=== PATIENT | female | born 1940 | race Caucasian/White ===

== ENCOUNTER 2017-08-26 04:01 | Emergency (ER) | payer MEDICARE, BC ==
[2017-08-26] MEDS ORDERED: Nitroglycerin 0.4 MG Tab.SL SL ONE (04:11)
--- NOTE | 2017-08-26 08:17 | EDM.PDOC ---
ED HPI GENERAL MEDICAL PROBLEM - General Chief Complaint: Chest Pain Stated Complaint: TIGHTNESS IN CHEST Time Seen by Provider: 08/26/17 07:25 Source of Information: Reports: Patient, Other (ED provider) History Limitations: Reports: No Limitations - History of Present Illness INITIAL COMMENTS - FREE TEXT/NARRATIVE: Case reviewed from ED provider this am. awoke with deep retrosternal chest pain at 3 am, characterized as a 10/10. There was minor sweats, but no palpitations, pedro SOB, pleurisy, heart burn, gas or belching. She did not feel dizzy or lt headiness, reported no back pain. She was brought to the ED by spouse, initial medical workup has not confirmed or ruled out acute coronary syndrome. Her pain is currerntly 2-3. Her VSS. A follow up ekg and Troponin I are pending. - Related Data Allergies Allergy/AdvReac Type Severity Reaction Status Date / Time cefuroxime [From Ceftin] Allergy Hives Verified 08/26/17 04:34 meperidine [From Demerol] Allergy Hives Verified 08/26/17 04:34 morphine Allergy Hives Verified 08/26/17 04:34 Home Meds: Home Meds Aspirin 81 g PO DAILY 08/26/17 [History] FLUoxetine HCl [Prozac] 20 mg PO DAILY 08/26/17 [History] Fesoterodine Fumarate [Toviaz] 8 mg PO DAILY 08/26/17 [History] Losartan/Hydrochlorothiazide [Losartan-HCTZ 100-25 MG] 1 tab PO DAILY 08/26/17 [ History] Simvastatin [Zocor] 20 mg PO DAILY 08/26/17 [History] amLODIPine Besylate [Amlodipine Besylate] 5 mg PO DAILY 08/26/17 [History] Past Medical History HEENT History: Reports: Hard of Hearing, Impaired Vision Cardiovascular History: Reports: High Cholesterol, Hypertension, Other (See Below) Other Cardiovascular History: enlarged aorta [employer]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 Musculoskeletal History: wrist fracture - Past Surgical History GI Surgical History: Reports: Appendectomy Female Surgical History: Reports: Hysterectomy Social & Family History - Family History Family Medical History: Unobtainable - Tobacco Use Smoking Status *Q: Never Smoker - Caffeine Use Caffeine Use: Reports: Coffee, Soda - Recreational Drug Use Recreational Drug Use: No ED ROS GENERAL - Review of Systems Review Of Systems: See Below Constitutional: Reports: Malaise, Decreased Appetite HEENT: Reports: No Symptoms Respiratory: Reports: No Symptoms Cardiovascular: Reports: Chest Pain Endocrine: Reports: No Symptoms GI/Abdominal: Reports: Decreased Appetite : Reports: No Symptoms Musculoskeletal: Reports: No Symptoms Skin: Reports: No Symptoms Neurological: Reports: No Symptoms Psychiatric: Reports: No Symptoms Hematologic/Lymphatic: Reports: No Symptoms Immunologic: Reports: No Symptoms ED EXAM, GENERAL - Physical Exam Exam: See Below Exam Limited By: No Limitations General Appearance: Alert, WD/WN, No Apparent Distress, Anxious Eye Exam: Bilateral Eye: EOMI, Normal Inspection, PERRL Ears: Normal External Exam Nose: Normal Inspection Throat/Mouth: Normal Inspection, Normal Oropharynx Head: Normocephalic Neck: Normal Inspection, Supple, Non-Tender Respiratory/Chest: No Respiratory Distress, Lungs Clear, Normal Breath Sounds, No Accessory Muscle Use, Chest Non-Tender Cardiovascular: Regular Rate, Rhythm, No Murmur GI/Abdominal: Normal Bowel Sounds, Soft, Non-Tender, No Organomegaly, No Distention, No Abnormal Bruit, No Mass (Female) Exam: Deferred Rectal (Female) Exam: Deferred Back Exam: Normal Inspection Extremities: Normal Inspection Neurological: Alert, Oriented, CN II-XII Intact, Normal Cognition, No Motor/ Sensory Deficits Psychiatric: Normal Affect, Normal Mood Skin Exam: Warm, Dry, Intact Lymphatic: No Adenopathy Course - Vital Signs Text/Narrative:: Subsequent ekg and Troponin I were baseline and unchanged. I proceded with a Chest Angio, results were satisfactory. An incidental finding of coronary artery calcifications was noted. Patient is discharged clinically stable, and advised follow up with PCP to consider further cardiology assessment. Last Recorded V/S: Last Vital Signs Temp 36.7 C 08/26/17 04:02 Pulse 76 08/26/17 04:02 Resp 15 08/26/17 04:02 BP 120/64 08/26/17 04:18 Pulse Ox 95 08/26/17 04:02 - Orders/Labs/Meds Orders: Active Orders 24 hr Category Date Time Status Ang Chest [CT] Stat Exams 08/26/17 09:56 Taken Chest 1V Frontal [CR] Stat Exams 08/26/17 04:10 Taken EKG 12 Lead [EK] Routine Ther 08/26/17 04:09 Ordered EKG 12 Lead [EK] Routine Ther 08/26/17 09:00 Ordered Labs: Laboratory Tests 08/26/17 08/26/17 08/26/17 Range/Units 04:26 04:26 04:26 WBC 6.3 (4.5-12.0) X10-3/uL RBC 4.27 (3.23-5.20) x10(6)uL Hgb 13.2 (11.5-15.5) g/dL Hct 39.1 (30.0-51.3) % MCV 91.6 (80-96) fL MCH 31.0 (27.7-33.6) pg MCHC 33.9 (32.2-35.4) g/dL RDW 12.3 (11.5-15.5) % Plt Count 263 (125-369) X10(3)uL MPV 7.1 L (7.4-10.4) fL Neut % (Auto) 65.2 (46-82) % Lymph % (Auto) 24.9 (13-37) % [place] % (Auto) 6.9 (4-12) % Eos % (Auto) 3 (1.0-5.0) % Baso % (Auto) 1 (0-2) % Neut # (Auto) 4.1 (1.6-8.3) # Lymph # (Auto) 1.6 (0.6-5.0) # [place] # (Auto) 0.4 (0.0-1.3) # Eos # (Auto) 0.2 (0.0-0.8) # Baso # (Auto) 0.0 (0.0-0.2) # D-Dimer, Quantitative (0.0-0.59) mg/LFEU Sodium 139 (135-145) mmol/L Potassium 3.2 L (3.5-5.3) mmol/L Chloride 100 (100-110) mmol/L Carbon Dioxide 28 (21-32) mmol/L BUN 9 (7-18) mg/dL Creatinine 0.6 (0.55-1.02) mg/dL Est Cr Clr Drug Dosing TNP Estimated GFR (MDRD) > 60 (>60) BUN/Creatinine Ratio 15.0 (9-20) Glucose 126 H (80-116) mg/dL Calcium 9.4 (8.6-10.2) mg/dL Total Bilirubin 0.3 (0.1-1.3) mg/dL AST 24 (5-25) IU/L ALT 30 (12-36) U/L Alkaline Phosphatase 67 (56-112) IU/L Troponin I < 0.017 L (<0.017-0.056) ng/mL C-Reactive Protein (0.5-0.9) mg/dL NT-Pro-B Natriuret Pep (<=450) pg/mL Total Protein 7.2 (6.0-8.0) g/dL Albumin 3.7 (3.2-4.6) g/dL Globulin 3.5 g/dL Albumin/Globulin Ratio 1.1 08/26/17 08/26/17 08/26/17 Range/Units 04:26 04:26 08:55 WBC (4.5-12.0) X10-3/uL RBC (3.23-5.20) x10(6)uL Hgb (11.5-15.5) g/dL Hct (30.0-51.3) % MCV (80-96) fL MCH (27.7-33.6) pg MCHC (32.2-35.4) g/dL RDW (11.5-15.5) % Plt Count (125-369) X10(3)uL MPV (7.4-10.4) fL Neut % (Auto) (46-82) % Lymph % (Auto) (13-37) % [place] % (Auto) (4-12) % Eos % (Auto) (1.0-5.0) % Baso % (Auto) (0-2) % Neut # (Auto) (1.6-8.3) # Lymph # (Auto) (0.6-5.0) # [place] # (Auto) (0.0-1.3) # Eos # (Auto) (0.0-0.8) # Baso # (Auto) (0.0-0.2) # D-Dimer, Quantitative (0.0-0.59) mg/LFEU Sodium (135-145) mmol/L Potassium (3.5-5.3) mmol/L Chloride (100-110) mmol/L Carbon Dioxide (21-32) mmol/L BUN (7-18) mg/dL Creatinine (0.55-1.02) mg/dL Est Cr Clr Drug Dosing Estimated GFR (MDRD) (>60) BUN/Creatinine Ratio (9-20) Glucose (80-116) mg/dL Calcium (8.6-10.2) mg/dL Total Bilirubin (0.1-1.3) mg/dL AST (5-25) IU/L ALT (12-36) U/L Alkaline Phosphatase (56-112) IU/L Troponin I < 0.017 L (<0.017-0.056) ng/mL C-Reactive Protein < 0.2 L (0.5-0.9) mg/dL NT-Pro-B Natriuret Pep 75 (<=450) pg/mL Total Protein (6.0-8.0) g/dL Albumin (3.2-4.6) g/dL Globulin g/dL Albumin/Globulin Ratio 08/26/ Range/Units 08:55 WBC (4.5-12.0) X10-3/uL RBC (3.23-5.20) x10(6)uL Hgb (11.5-15.5) g/dL Hct (30.0-51.3) % MCV (80-96) fL MCH (27.7-33.6) pg MCHC (32.2-35.4) g/dL RDW (11.5-15.5) % Plt Count (125-369) X10(3)uL MPV (7.4-10.4) fL Neut % (Auto) (46-82) % Lymph % (Auto) (13-37) % [place] % (Auto) (4-12) % Eos % (Auto) (1.0-5.0) % Baso % (Auto) (0-2) % Neut # (Auto) (1.6-8.3) # Lymph # (Auto) (0.6-5.0) # [place] # (Auto) (0.0-1.3) # Eos # (Auto) (0.0-0.8) # Baso # (Auto) (0.0-0.2) # D-Dimer, Quantitative 0.52 (0.0-0.59) mg/LFEU Sodium (135-145) mmol/L Potassium (3.5-5.3) mmol/L Chloride (100-110) mmol/L Carbon Dioxide (21-32) mmol/L BUN (7-18) mg/dL Creatinine (0.55-1.02) mg/dL Est Cr Clr Drug Dosing Estimated GFR (MDRD) (>60) BUN/Creatinine Ratio (9-20) Glucose (80-116) mg/dL Calcium (8.6-10.2) mg/dL Total Bilirubin (0.1-1.3) mg/dL AST (5-25) IU/L ALT (12-36) U/L Alkaline Phosphatase (56-112) IU/L Troponin I (<0.017-0.056) ng/mL C-Reactive Protein (0.5-0.9) mg/dL NT-Pro-B Natriuret Pep (<=450) pg/mL Total Protein (6.0-8.0) g/dL Albumin (3.2-4.6) g/dL Globulin g/dL Albumin/Globulin Ratio Meds: Medications Discontinued Medications Generic Name Dose Route Start Last Admin Trade Name Freq PRN Reason Stop Dose Admin Iopamidol 75 ml 08/26/17 10:06 08/26/17 10:31 Isovue-370 (76%) IV 08/26/17 10:07 66 ml ASDIRECTED ONE Administration Nitroglycerin 0.4 mg 08/26/17 04:11 08/26/17 04:18 Nitrostat SL 08/26/17 04:12 0.4 mg ONETIME ONE Administration Tramadol HCl Confirm 08/26/17 10:19 Ultram Administered 08/26/17 10:20 Dose 50 mg .ROUTE .STK-MED ONE Departure - Departure Time of Disposition: 11:15 Disposition: Home, Self-Care 01 Condition: Good Clinical Impression: Atypical chest pain Referrals: Pita Sanchez CLAIM TRAINEE [Primary Care Provider] - Forms: ED Department Discharge - Problem List & Annotations (1) Atypical chest pain SNOMED Code(s): 919209334 Code(s): R07.89 - OTHER CHEST PAIN Status: Acute Current Visit: Yes Annotation/Comment:: Home, activity as tolerated, no driving, continue ASA 81 mg qd, and follow up with PCP. - Problem List Review Problem List Initiated/Reviewed/Updated: Yes - My Orders Last 24 Hours: My Active Orders 08/26/17 09:56 Ang Chest [CT] Stat - Assessment/Plan Last 24 Hours: My Active Orders 08/26/17 09:56 Ang Chest [CT] Stat Plan: Follow up with PCP.
[2017-08-26] MEDS ORDERED: Iopamidol 755 Mg/ML 75 ML Bottle IV ONE (10:06)
[2017-08-26] MEDS ORDERED: traMADol 50 MG Tab ONE (10:19)
--- NOTE | 2017-08-26 12:45 | ER ---
DATE SEEN: 08/26/2017 CHIEF COMPLAINT: Chest tightness. HISTORY OF PRESENT ILLNESS: A 77-year-old female complaining about an hour of heaviness in the center of the chest, [id number] with no difficulty breathing. No radiation. Has had some cough associated with this, started a few hours ago as well. She was sleeping when this started. REVIEW OF SYSTEMS: She denies any nausea, diaphoresis, vomiting, neither does she have any fever or headache or weakness of one side. PAST MEDICAL HISTORY: Hypertension, hyperlipidemia. ALLERGIES: Please review the medication list and allergies at the nurse's notes and the electronic record. PHYSICAL EXAMINATION: VITAL SIGNS: Blood pressure is 138/69, pulse is 78, oxygenation is 95% on room air. ENT: Negative. NECK: Supple. CHEST: CLEAR. CARDIOVASCULAR: Normal. ABDOMEN: Soft. MENTAL STATUS: Alert. LABORATORY DATA: The initial labs including troponin are negative. EKG is normal sinus rhythm. I do not see any ST depression or elevation, significant. Chest x-ray initially was looking nonacute. BNP is normal. IMPRESSION: Chest pressure. PLAN: To keep the patient for few hours, repeat the troponin and EKG at [address] Potts will take over her care at that time. I saw her at exactly 0511 hours. /[id number] REGINA/ESTEBAN
--- NOTE | 2017-08-26 13:06 | CR ---
INDICATION: Chest pain. CHEST: Portable AP upright view of the chest revealed the heart to be normal in size and shape, as visualized, with relatively poor inspiration. There is some linear density at the left costophrenic angle, which could represent linear atelectasis, fibrosis, or possibly minimal pneumonia with pleuritis in that area. The aorta is calcified in the arch area and somewhat tortuous. Overlying EKG leads are noted. A definite active infiltrate or effusion was not identified. IMPRESSION: 1. No definite acute process but difficult to exclude minimal patchy pneumonia at the lingula - costophrenic angle area. This may simply be fibrotic, however. 2. ASD aorta. MTDD
--- NOTE | 2017-08-26 13:18 | CT ---
INDICATION: Retrosternal chest pain, history of aortic enlargement, D-dimer normal, C-reactive protein normal, EKG and troponin normal. CT ANGIOGRAPHY OF THE CHEST FOR PULMONARY ARTERIES: Spiral 1.25 mm axial sections were obtained through the chest with sagittal and coronal reconstructions, utilizing 66 mL Isovue 370 at 3.5 mL/second, to visualize the pulmonary arteries. Study was obtained 08/26/2017 - no comparison CTs are available. Total exam DLP = 579.82 mGy-cm. No evidence of pulmonary embolus or an active infiltrate or effusion could be identified. There are some heavy markings at the lingula, which most likely are fibrotic in nature but do make it difficult to entirely exclude a minimal area of pneumonia and/or atelectasis. Very minimal fibrotic appearing changes are noted in the lower lobes bilaterally , more prominent on the left than right. The heart was not enlarged; however, there is coronary artery calcification noted. The aorta is somewhat calcified also. There is calcification at the origin of the superior mesenteric artery and in the splenic artery. Mediastinal lymphadenopathy is minimal and nonspecific. No mediastinal masses were identified. No significant pericardial effusion was identified. There is slight prominence of the pericardium anteriorly, raising question of a focal area of pericarditis. This should be correlated clinically. IMPRESSION: 1. Anteriorly located area of thickening of the pericardium (anterior thickness 13 mm, the length involved of the pericardium approximately 28 mm) - density compatible with fluid. 2. No evidence of pulmonary embolus. 3. Fibrosis and/or atelectasis, is most likely at the lingula. Very minimal area of pneumonia is difficult to entirely exclude in that area, however. 4. ASHD with coronary artery calcifications. Report was called to Dr. Delroy knight a.m., 08/26/2017. [facility]
== END 2017-08-26 11:37 | disposition home or self-care (01) ==
LOC: FB.ED 04:01
DX: R07.89 Other chest pain (principal); I10 Essential (primary) hypertension; E78.00 Pure hypercholesterolemia, unspecified
CPT/HCPCS: 36415; 71045; 71275; 80053; 83880; 84484; 85025; 85379; 86140; 93005; 99285; A9270; Q9967

== ENCOUNTER 2019-04-07 16:31 | Observation (INO) | payer MEDICARE, BC ==
--- NOTE | 2019-04-07 17:01 | EDM.PDOC ---
ED HPI GENERAL MEDICAL PROBLEM - General Stated Complaint: SYNCOPE, Time Seen by Provider: 04/07/19 16:55 Source of Information: Reports: Patient History Limitations: Reports: No Limitations - History of Present Illness INITIAL COMMENTS - FREE TEXT/NARRATIVE: 78-year-old female who reports that at about 8:30 PM last night she was sitting and watching TV with her and she apparently passed out. The reported that into slumped over while sitting and about 10 seconds and then came around and seemed to be really pretty normally. She had some mild dizziness and some mild nausea following this but they resolved very quickly and she felt normal after this. She went to bed last night and slept well according to her and her . She felt well all through the day today and then at approximately 4:30 to 5 PM today after she had did some mopping of her floor she had another syncopal episode and the reports that she called out his name and then seemed to slump to the floor. She did not hit her head. She was again out for about 10 seconds and when she came to, she seemed to respond normally and she felt some mild dizziness and some mild nausea. She also had an occipital headache but intermittent occipital headaches prior to today. She's had no other symptoms. She's had no nasal congestion. She's had no sore throat. She's had no cough. She's had no dysuria or hematuria. She's had no abdominal pain. She had no abdominal superseding to her a couple episodes. In fact, she does not remember calling her 's name out when she had the syncopal episode today. Her reports that there was no shaking of her arms or legs. The patient has had no chest pain or palpitations. No shortness of breath. No vomiting. She has been eating and drinking normally. She rates the pain in her head now as a 3/10 and it was a 7/10 at its worst. It does not radiate. It is a sharp pain. Nothing really seems to make the pain better or worse. No other associated signs or symptoms. There are no other modifying factors. Onset: Other (Last night and again today) Duration: Intermittent Location: Reports: Head (Occipital headache) Quality: Reports: Sharp Severity: Mild (Was a 7/10 at its worse and is now a 3/10 and resolving.) Improves with: Reports: None Worsens with: Reports: None Context: Reports: Other (As above) Associated Symptoms: Reports: Headaches, Nausea/Vomiting (Mild nausea initially which has resolved), Syncope Treatments JOB TRACER: Reports: Other (see below) (Nothing) - Related Data Allergies Allergy/AdvReac Type Severity Reaction Status Date / Time cefuroxime [From Ceftin] Allergy Hives Verified 08/26/17 04:34 meperidine [From Demerol] Allergy Hives Verified 08/26/17 04:34 morphine Allergy Hives Verified 08/26/17 04:34 Home Meds: Home Meds Aspirin 81 g PO DAILY 08/26/17 [History] FLUoxetine HCl [Prozac] 20 mg PO DAILY 08/26/17 [History] Fesoterodine Fumarate [Toviaz] 8 mg PO DAILY 08/26/17 [History] Losartan/Hydrochlorothiazide [Losartan-HCTZ 100-25 MG] 1 tab PO DAILY 08/26/17 [ History] Simvastatin [Zocor] 20 mg PO DAILY 08/26/17 [History] amLODIPine Besylate [Amlodipine Besylate] 5 mg PO DAILY 08/26/17 [History] Past Medical History HEENT History: Reports: Hard of Hearing, Impaired Vision Cardiovascular History: Reports: High Cholesterol, Hypertension, Other (See Below) Other Cardiovascular History: 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 Other Musculoskeletal History: wrist fracture - Past Surgical History Cardiovascular Surgical History: Reports: Other (See Below) (Cardiac catheterization at 20 years of age, diagnostic) GI Surgical History: Reports: Appendectomy Female Surgical History: Reports: Hysterectomy Social & Family History - Tobacco Use Smoking Status *Q: Never Smoker - Caffeine Use Caffeine Use: Reports: Coffee, Soda - Alcohol Use Alcohol Use History: Yes Alcohol Use Frequency: Weekly (3 times a week) - Living Situation & Occupation Living situation: Reports: Occupation: Retired Social History Comment: She is here with her . ED ROS GENERAL - Review of Systems Review Of Systems: See Below Constitutional: Reports: No Symptoms HEENT: Reports: No Symptoms Respiratory: Reports: No Symptoms Cardiovascular: Reports: Syncope Endocrine: Reports: No Symptoms GI/Abdominal: Reports: Nausea (Mild nausea earlier which has resolved.) : Reports: No Symptoms Musculoskeletal: Reports: No Symptoms Skin: Reports: No Symptoms Neurological: Reports: Dizziness (Mild dizziness earlier which has resolved), Headache, Syncope Hematologic/Lymphatic: Reports: No Symptoms Immunologic: Reports: No Symptoms - Physical Exam Exam: See Below Exam Limited By: No Limitations General Appearance: Alert, WD/WN, No Apparent Distress Eye Exam: Bilateral Eye: EOMI, Normal Inspection, PERRL Ears: Normal External Exam, Hearing Grossly Normal Nose: Normal Inspection, Normal Mucosa, No Blood Throat/Mouth: Normal Inspection, Normal Lips, Normal Oropharynx, Normal Voice, No Airway Compromise Head Exam: Atraumatic, Normocephalic Neck: Normal Inspection, Supple, Non-Tender, Full Range of Motion Respiratory/Chest: No Respiratory Distress, Lungs Clear, Normal Breath Sounds, No Accessory Muscle Use, Chest Non-Tender Cardiovascular: Normal Peripheral Pulses, Regular Rate, Rhythm, No Edema, No JVD , No Murmur GI/Abdominal: Normal Bowel Sounds, Soft, Non-Tender, No Organomegaly, No Mass Neuro Exam (Abbreviated): Alert, Oriented, CN II-XII Intact, Normal Cognition, No Motor/Sensory Deficits Back Exam: Normal Inspection Extremities: Normal Inspection, Normal Range of Motion, Non-Tender, No Pedal Edema, Normal Capillary Refill, Other (Radial and dorsalis pedis pulses are present, full and symmetric bilaterally.) Psychiatric: Normal Affect Skin Exam: Warm, Dry, Intact, Normal Color, No Rash EKG INTERPRETATION EKG Date: 04/07/19 Time: 16:46 Rhythm: NSR Rate (Beats/Min): 71 [place]: Normal P-Wave: Present QRS: RBBB ST-T: Other (Flat T waves inferiorly and laterally) QT: Prolonged Comparison: Other: (Compared to EKG performed on 08/26/2017, the T waves laterally in V5 and V6 are flat but this lead placement.) Course - Vital Signs Last Recorded V/S: Last Vital Signs Temp 36.8 C 04/07/19 16:31 Pulse 78 04/07/19 16:31 Resp 18 04/07/19 16:31 BP 122/92 H 04/07/19 16:31 Pulse Ox 97 04/07/19 16:31 - Orders/Labs/Meds Orders: Active Orders 24 hr Category Date Time Status EKG Documentation Completion [RC] ASDIRECTED Care 04/07/19 17:23 Active Orthostatic Vital Signs [RC] ASDIRECTED Care 04/07/19 17:21 Active Head wo Cont [CT] Stat Exams 04/07/19 17:21 Taken CULTURE URINE [RM] Stat Lab 04/07/19 18:25 Sodium Chloride 0.9% [Saline Flush] Med 04/07/19 17:21 Active 10 ml FLUSH ASDIRECTED PRN Peripheral IV Insertion Adult [OM.PC] Routine Oth 04/07/19 17:21 Ordered EKG 12 Lead [EK] Routine Ther 04/07/19 17:21 Ordered Medication Orders Acetaminophen (Tylenol) 650 mg PO Q4H PRN PRN Reason: Pain (Mild 1-3)/fever Sodium Chloride (Normal Saline) 1,000 mls @ 100 mls/hr IV ASDIRECTED SOTO Ondansetron HCl (Zofran Odt) 4 mg PO Q6H PRN PRN Reason: nausea, able to take PO Sodium Chloride (Saline Flush) 10 ml FLUSH ASDIRECTED PRN PRN Reason: Keep Vein Open Labs: Laboratory Tests 04/07/19 04/07/19 04/07/19 Range/Units 17:21 17:21 17:21 WBC 6.6 (4.5-12.0) X10-3/uL RBC 4.34 (3.23-5.20) x10(6)uL Hgb 13.2 (11.5-15.5) g/dL Hct 39.8 (30.0-51.3) % MCV 91.9 (80-96) fL MCH 30.3 (27.7-33.6) pg MCHC 33.0 (32.2-35.4) g/dL RDW 12.8 (11.5-15.5) % Plt Count 316 (125-369) X10(3)uL MPV 6.9 L (7.4-10.4) fL Neut % (Auto) 58.6 (46-82) % Lymph % (Auto) 29.7 (13-37) % Bond % (Auto) 8.1 (4-12) % Eos % (Auto) 3 (1.0-5.0) % Baso % (Auto) 1 (0-2) % Neut # (Auto) 3.8 (1.6-8.3) # Lymph # (Auto) 2.0 (0.6-5.0) # Bond # (Auto) 0.5 (0.0-1.3) # Eos # (Auto) 0.2 (0.0-0.8) # Baso # (Auto) 0.1 (0.0-0.2) # Sodium 138 (135-145) mmol/L Potassium 3.3 L (3.5-5.3) mmol/L Chloride 100 (100-110) mmol/L Carbon Dioxide 26 (21-32) mmol/L BUN 12 (7-18) mg/dL Creatinine 0.6 (0.55-1.02) mg/dL Est Cr Clr Drug Dosing TNP Estimated GFR (MDRD) > 60 (>60) BUN/Creatinine Ratio 20.0 (9-20) Glucose 119 H (80-116) mg/dL Calcium 8.8 (8.6-10.2) mg/dL Magnesium 1.9 (1.8-2.5) mg/dL Total Bilirubin 0.4 (0.1-1.3) mg/dL AST 24 (5-25) IU/L ALT 30 (12-36) U/L Alkaline Phosphatase 57 (56-112) IU/L C-Reactive Protein (0.5-0.9) mg/dL Total Protein 7.4 (6.0-8.0) g/dL Albumin 4.1 (3.2-4.6) g/dL Globulin 3.3 g/dL Albumin/Globulin Ratio 1.2 TSH, Ultra Sensitive (0.36-3.74) IU/mL Urine Color Yellow (YELLOW) Urine Appearance Clear (CLEAR) Urine pH 7.0 H (5.0-6.5) Ur Specific [place] 1.005 L (1.010-1.025) Urine Protein Negative (NEGATIVE) mg/dL Urine Glucose (UA) Normal (NORMAL) mg/dL Urine Ketones Negative (NEGATIVE) mg/dL Urine Occult Blood Negative (NEGATIVE) Urine Nitrite Negative (NEGATIVE) Urine Bilirubin Negative (NEGATIVE) Urine Urobilinogen Normal (NEGATIVE) mg/dL Ur Leukocyte Esterase Moderate H (NEGATIVE) Urine RBC Not seen (0-5) Urine WBC 0-5 (0-5) Urine Bacteria Rare H (NS) 04/07/19 Range/Units 17:21 WBC (4.5-12.0) X10-3/uL RBC (3.23-5.20) x10(6)uL Hgb (11.5-15.5) g/dL Hct (30.0-51.3) % MCV (80-96) fL MCH (27.7-33.6) pg MCHC (32.2-35.4) g/dL RDW (11.5-15.5) % Plt Count (125-369) X10(3)uL MPV (7.4-10.4) fL Neut % (Auto) (46-82) % Lymph % (Auto) (13-37) % Bond % (Auto) (4-12) % Eos % (Auto) (1.0-5.0) % Baso % (Auto) (0-2) % Neut # (Auto) (1.6-8.3) # Lymph # (Auto) (0.6-5.0) # Bond # (Auto) (0.0-1.3) # Eos # (Auto) (0.0-0.8) # Baso # (Auto) (0.0-0.2) # Sodium (135-145) mmol/L Potassium (3.5-5.3) mmol/L Chloride (100-110) mmol/L Carbon Dioxide (21-32) mmol/L BUN (7-18) mg/dL Creatinine (0.55-1.02) mg/dL Est Cr Clr Drug Dosing Estimated GFR (MDRD) (>60) BUN/Creatinine Ratio (9-20) Glucose (80-116) mg/dL Calcium (8.6-10.2) mg/dL Magnesium (1.8-2.5) mg/dL Total Bilirubin (0.1-1.3) mg/dL AST (5-25) IU/L ALT (12-36) U/L Alkaline Phosphatase (56-112) IU/L C-Reactive Protein < 0.2 L (0.5-0.9) mg/dL Total Protein (6.0-8.0) g/dL Albumin (3.2-4.6) g/dL Globulin g/dL Albumin/Globulin Ratio TSH, Ultra Sensitive 2.07 (0.36-3.74) IU/mL Urine Color (YELLOW) Urine Appearance (CLEAR) Urine pH (5.0-6.5) Ur Specific [place] (1.010-1.025) Urine Protein (NEGATIVE) mg/dL Urine Glucose (UA) (NORMAL) mg/dL Urine Ketones (NEGATIVE) mg/dL Urine Occult Blood (NEGATIVE) Urine Nitrite (NEGATIVE) Urine Bilirubin (NEGATIVE) Urine Urobilinogen (NEGATIVE) mg/dL Ur Leukocyte Esterase (NEGATIVE) Urine RBC (0-5) Urine WBC (0-5) Urine Bacteria (NS) Meds: Medications Generic Name Dose Route Start Last Admin Trade Name Freq PRN Reason Stop Dose Admin Acetaminophen 650 mg 04/07/19 18:41 Tylenol PO Q4H PRN Pain (Mild 1-3)/fever Sodium Chloride 1,000 mls @ 100 mls/hr 04/07/19 18:45 Normal Saline IV ASDIRECTED SOTO Ondansetron HCl 4 mg 04/07/19 18:41 Zofran Odt PO Q6H PRN nausea, able to take PO Sodium Chloride 10 ml 04/07/19 17:21 Saline Flush FLUSH ASDIRECTED PRN Keep Vein Open Discontinued Medications Generic Name Dose Route Start Last Admin Trade Name Freq PRN Reason Stop Dose Admin Potassium Chloride 20 meq 04/07/19 18:23 Potassium Chloride Solution PO 04/07/19 18:24 ONETIME ONE - Radiology Interpretation Free Text/Narrative:: CT scan of head showed no acute abnormality per the radiologist. - Re-Assessments/Exams Free Text/Narrative Re-Assessment/Exam: 04/07/19 18:30: Patient feels somewhat tired but otherwise her symptoms. Her headache is essentially resolved. She is having no palpitations, no chest pain, no shortness of breath or any other concerning symptoms. Patient with reassuring lab tests except for a mildly low potassium. She has no urinary symptoms but I did send her urine for culture because of the white cells and bacteria present. The nature of her syncope is not easily explainable as vasovagal and she does have some mild EKG changes from previous on 08/26/2017. Therefore, I think she would be best served with admission for continued cardiac monitoring overnight and continued close observation. I do not expect that she will require more than a 2 midnight hospital stay at this point. I discussed this with the patient and her and they are in agreement with this plan. I will place admission orders and Dr. Vanegas will assume care of the patient at 7 AM on 04/08/2019. Departure - Departure Time of Disposition: 18:40 Disposition: Refer to Observation Condition: Fair (Stable) Clinical Impression: Hypokalemia Syncope Qualifiers: Syncope type: unspecified Qualified Code(s): R55 - Syncope and collapse - Discharge Information Sepsis Event Note - Focused Exam Vital Signs: Vital Signs Temp Pulse Resp BP Pulse Ox 04/07/19 16:31 36.8 C 78 18 122/92 H 97 Date Exam was Performed: 04/07/19 Time Exam was Performed: 18:49 - My Orders Last 24 Hours: My Active Orders 04/07/19 17:21 Orthostatic Vital Signs [RC] ASDIRECTED Head wo Cont [CT] Stat Sodium Chloride 0.9% [Saline Flush] 10 ml FLUSH ASDIRECTED PRN Peripheral IV Insertion Adult [OM.PC] Routine EKG 12 Lead [EK] Routine 04/07/19 17:23 EKG Documentation Completion [RC] ASDIRECTED 04/07/19 18:25 CULTURE URINE [RM] Stat - Assessment/Plan Last 24 Hours: My Active Orders 04/07/19 17:21 Orthostatic Vital Signs [RC] ASDIRECTED Head wo Cont [CT] Stat Sodium Chloride 0.9% [Saline Flush] 10 ml FLUSH ASDIRECTED PRN Peripheral IV Insertion Adult [OM.PC] Routine EKG 12 Lead [EK] Routine 04/07/19 17:23 EKG Documentation Completion [RC] ASDIRECTED 04/07/19 18:25 CULTURE URINE [RM] Stat
[2019-04-07] MEDS ORDERED: Sodium Chloride 0.9% 10 ML Syringe FLUSH PRN (17:21)
[2019-04-07] MEDS ORDERED: Potassium Chloride 10% 20 MEQ/15 ML Soln 15 ML UD Cup PO ONE (18:23)
[2019-04-07] MEDS ORDERED: Ondansetron 4 MG Tab.DIS PO PRN (18:41)
[2019-04-07] MEDS ORDERED: Acetaminophen 325 MG Tab PO PRN (18:41)
[2019-04-07] MEDS ORDERED: Sodium Chloride 0.9% 1,000 ML IV SCH (18:45)
[2019-04-08] MEDS ORDERED: OXYBUTYNIN CHLORIDE 10 MG PO SCH (09:00)
[2019-04-08] MEDS ORDERED: FLUoxetine 20 MG Cap PO SCH (09:00)
[2019-04-08] MEDS ORDERED: Potassium Chloride 20 MEQ Tab.ER PO SCH (09:00)
--- NOTE | 2019-04-08 11:56 | HP ---
ADMISSION DATE: 04/07/2019 CHIEF COMPLAINT: Syncopal episodes. HISTORY OF PRESENT ILLNESS: Mrs. Hampton is a healthy 78-year-old woman with a history of hypertension and osteoporosis. She was brought in the ER by her last evening because of 2 episodes where she passed out. The previous night, they were sitting in the living room watching television, and she passed out in her chair for a period of a minute her less. She came to spontaneously and seemed to get back to normal. Then yesterday, the day of admission, she was up walking in the kitchen when she suddenly passed out and fell to the floor. She did not sustain an injury, but came to again spontaneously. She then came into the emergency room. She was evaluated by Dr. Nunn and admitted to observation with telemetry. The patient states she did feel one episode where she got lightheaded during the night while she was in bed, but did not completely pass out. She was on telemetry monitoring, which revealed an episode of long, greater than 10-second sinus pauses with 2 junctional escape beats at approximately 1:30 in the a.m. Mrs. Hamtpon has not been on a beta virgen. HOME MEDICATIONS: Include: 1. Losartan. 2. Oxybutynin. 3. Simvastatin. 4. Hydrochlorothiazide. 5. Amlodipine 5 mg daily. PAST MEDICAL HISTORY: She has been very healthy. She has had hypertension for many years. She had a cardiac catheterization at the [facility] at age 20 and was told she had an enlarged aorta, but it would never bother her. She is status post appendectomy, vaginal hysterectomy with BSO, T and A, bilateral cataract surgeries. She has osteoporosis, hypertension, and she has sustained a right wrist fracture. ALLERGIES: Cefuroxime, Demerol, and morphine. She does not recall the reactions that she had. SOCIAL HISTORY: Nonsmoker, occasional alcohol, decaf coffee, occasional iced tea. The patient has been for 58 years. They had 2 children, 1 daughter of cirrhosis. Son lives in [place]. Six grandchildren and 1 great grandchild. 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 Her is retired from [employer] after teaching [employer] for 33 years. They have been now retired for 20 years. FAMILY HISTORY: The patient's father at age 57 of heart disease. He had had an OR at age 46. One brother also had OR before age 50. Mother at age 76 of lung disease. REVIEW OF SYSTEMS: GENERAL: No seizures or recent significant weight changes. SKIN: No rash. HEENT: No recent change in hearing or vision. No sore throat or URI. No cough or purulent sputum. No chest pain. GI: No abdominal pain, nausea, or diarrhea. MUSCULOSKELETAL: No joint inflammation. She does occasionally get some swelling of her feet, but she says it is down to normal by mornings. No skin rash, mood instability, or temperature intolerance. PHYSICAL EXAMINATION: GENERAL: She is alert, comfortable, and healthy. She is an excellent historian. VITAL SIGNS: Blood pressure 125/71, pulse 66, pulse 72 and regular, respirations normal, O2 saturation 98% on room air, temperature 98, weight 148 pounds. SKIN: Anicteric, warm, dry, without rash. HEENT: Shows clear TMs. Pupils are equal and reactive. Oropharynx clear. LUNGS: Clear at the bases. HEART: Regular without murmur or gallop heard. ABDOMEN: Normal bowel sounds. Soft and nontender. EXTREMITIES: Show no edema and intact dorsalis pedis pulses. LABORATORY: White count 4500, hemoglobin 12.6, sodium 143, potassium 3.9, BUN 7, creatinine 0.5. Troponin less than 0.017 x2. Urinalysis negative. TSH 2.07. CRP less than 0.2. 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 PLAN: I have had phone consultation with Dr. Garay at [facility] in [place]. They will accept her in transfer with likely placement of pacemaker. We will keep her on the monitor in the meantime pending transfer. I have discussed this and the potential pacemaker procedure with she and her . /[id number] YESENIA/ESTEBAN
[2019-04-08] MEDS ORDERED: Hydrochlorothiazide 12.5 MG Cap PO SCH (21:00)
[2019-04-08] MEDS ORDERED: Simvastatin 20 MG Tab PO SCH (21:00)
[2019-04-08] MEDS ORDERED: Losartan 50 MG Tab PO SCH (21:00)
--- NOTE | 2019-04-10 09:35 | DISCH ---
DISCHARGE DATE: 04/08/2019 HISTORY: Maritza is a 78-year-old woman with history of hypertension, who came in after 2 syncopal episodes. She was placed on telemetry monitoring overnight and was found to have one other slightly symptomatic episode where she had a 6- plus-second atrial pause with 2 junctional escape beats. For this reason, a consultation was sought from the hospitalist at [facility] in [place], who will accept her with plans for pacemaker evaluation. She is discharged to be transported by ambulance in good condition to continue medications as follows: 1. Amlodipine 5 mg at bedtime. 2. Calcium carbonate 1 daily. 3. Multiple vitamin 1 daily. 4. Omeprazole 20 mg daily. 5. Alendronate 70 mg weekly. 6. Simvastatin 20 mg at bedtime. 7. Oxybutynin 10 mg daily. 8. Losartan 50 mg at bedtime. 9. Hydrochlorothiazide 12.5 mg at bedtime. 10.Fluoxetine 20 mg daily. 11.Tylenol p.r.n. FOLLOWUP: She is to have routine followup with her regular doctor after discharge from [facility]. /[id number] YESENIA/ESTEBAN
== END 2019-04-08 12:30 ==
LOC: FB.ED 16:31 → FB.MS 18:31
PROVIDERS: ADMIT Family Medicine; ATTEND Family Medicine
DX: R00.1 Bradycardia, unspecified (principal); I10 Essential (primary) hypertension; M81.0 Age-related osteoporosis without current pathological fracture; Z88.1 Allergy status to other antibiotic agents; Z88.5 Allergy status to narcotic agent; Z79.899 Other long term (current) drug therapy; Z86.79 Personal history of other diseases of the circulatory system; Z98.890 Other specified postprocedural states
CPT/HCPCS: 36415; 70450; 80048; 80053; 81001; 82962; 83735; 84443; 84484; 85025; 85027; 86140; 87086; 93005; A9270; J7030; 93010; 96360; 96361; 99284; 99285-25; G0378

== ENCOUNTER 2020-12-27 11:50 | Emergency (ER) | payer MEDICARE, BC ==
--- NOTE | 2020-12-27 12:41 | EDM.PDOC ---
ED HPI GENERAL MEDICAL PROBLEM - General Chief Complaint: Respiratory Problem Stated Complaint: COUGH,SOB Time Seen by Provider: 12/27/20 12:25 Source of Information: Reports: Patient History Limitations: Reports: No Limitations - History of Present Illness INITIAL COMMENTS - FREE TEXT/NARRATIVE: 80-year-old female who reports on 12/25/2020 when she was going to bed that she noticed a bit of sounds and her chest that she thought might be wheezing and a cough. She also had some heaviness in her chest and the symptoms have been persistent since that time. She reports that mostly the wheezing are sounds in her chest are mostly at night when she is lying down. She does feel somewhat short of breath at times. She reports the heaviness test is rated by her as a 3- 4/10. It does not radiate. It does seem to be somewhat worse with her cough. It also seems to be somewhat worse when she is lying down at night. No nausea or vomiting. No diarrhea. She has been eating and drinking normally.No arm pain, neck pain, jaw pain or back pain. There are no other associated signs or symptoms. There are no other modifying factors. Onset: Other (12/25/2020) Duration: Constant Location: Reports: Chest Quality: Reports: Other (Heaviness) Severity: Mild Improves with: Reports: None Worsens with: Reports: Other (Lying down. Cough.) Context: Reports: Other Associated Symptoms: Reports: No Other Symptoms (Except as above.) Treatments AT RISK SPECIALIST: Reports: Other Medication(s) (Robitussin) - Related Data Allergies Allergy/AdvReac Type Severity Reaction Status Date / Time cefuroxime [From Ceftin] Allergy Hives Verified 12/27/20 12:01 meperidine [From Demerol] Allergy Hives Verified 12/27/20 12:01 morphine Allergy Hives Verified 12/27/20 12:01 Home Meds: Home Meds FLUoxetine HCl [Prozac] 20 mg PO DAILY 08/26/17 [History] amLODIPine Besylate [Amlodipine Besylate] 5 mg PO BEDTIME 08/26/17 [History] Alendronate Sodium [Fosamax] 70 mg PO MURDOCK 04/07/19 [History] Calcium Carbonate/Vitamin D3 [Caltrate 600 Plus D3 Tablet] 1 each PO DAILY 04/07/19 [History] Multivitamin [Multivitamins] 1 tab PO DAILY 04/07/19 [History] Omeprazole 20 mg PO DAILY 04/07/19 [History] Oxybutynin Chloride [Oxybutynin Chloride ER] 5 mg PO BEDTIME 04/07/19 [History] Apixaban [Eliquis] 5 mg BID 12/27/20 [History] Apixaban [Eliquis] 5 mg PO BID 12/27/20 [History] Aspirin [Yoel Chewable] 81 mg PO DAILY 12/27/20 [History] Azithromycin [Zithromax] 250 mg PO ASDIRECTED 5 Days #6 tab 12/27/20 [Rx] Fish Oil/Scio-3 Fatty Acids [Fish Oil 1,000 MG] 1 each PO DAILY 12/27/20 [History] Metoprolol Succinate [Toprol XL] 25 mg PO BID 12/27/20 [History] atorvaSTATin [Lipitor] 10 mg PO BEDTIME 12/27/20 [History] traMADol [Ultram] 50 mg PO Q6H PRN 12/27/20 [History] Past Medical History HEENT History: Reports: Hard of Hearing, Impaired Vision Cardiovascular History: Reports: Afib, High Cholesterol, Hypertension, Other (See Below) Other Cardiovascular History: 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 Gastrointestinal History: Reports: GERD Genitourinary History: Reports: Urinary Incontinence Other Genitourinary History: dribbling Musculoskeletal History: Reports: Arthritis, Other (See Below) Other Musculoskeletal History: wrist fracture Hematologic History: Reports: Anticoagulation Therapy (On Eliquis) - Infectious Disease History Infectious Disease History: Reports: Chicken Pox - Past Surgical History HEENT Surgical History: Reports: Cataract Surgery Cardiovascular Surgical History: Reports: Carotid Endarterectomy (Left), Pacer GI Surgical History: Reports: Appendectomy Female Surgical History: Reports: Hysterectomy Social & Family History - Tobacco Use Tobacco Use Status *Q: Unknown Ever Used Tobacco (Nonsmoker) - Caffeine Use Caffeine Use: Reports: Tea Caffeine Use Comment: decaf caffeine - Alcohol Use Alcohol Use History: Yes Alcohol Use Frequency: Daily (2-3 a night) - Living Situation & Occupation Living situation: Reports: Occupation: Retired ED ROS GENERAL - Review of Systems Review Of Systems: See Below Constitutional: Denies: Fever, Chills, Weakness HEENT: Reports: Other (Is congestion.). Denies: Throat Pain, Throat Swelling Respiratory: Reports: Shortness of Breath, Wheezing, Cough Cardiovascular: Reports: Chest Pain (Chest heaviness). Denies: Palpitations, Syncope GI/Abdominal: Denies: Abdominal Pain, Nausea, Vomiting : Reports: Incontinence (Chronic.). Denies: Dysuria Musculoskeletal: Denies: Neck Pain, Back Pain Skin: Denies: Diaphoresis, Rash Neurological: Denies: Headache, Weakness Hematologic/Lymphatic: Reports: Easy Bleeding, Easy Bruising (Patient is chronically anticoagulated on Eliquis) ED EXAM, GENERAL - Physical Exam Exam: See Below Exam Limited By: No Limitations General Appearance: Alert, WD/WN, No Apparent Distress Eye Exam: Bilateral Eye: EOMI, Normal Inspection Ears: Normal External Exam, Hearing Grossly Normal Ear Exam: Bilateral Ear: Auricle Normal Nose: Normal Inspection, Normal Mucosa, No Blood Throat/Mouth: Normal Inspection, Normal Lips, Normal Oropharynx, Normal Voice, No Airway Compromise Head: Atraumatic, Normocephalic Neck: Supple, Non-Tender, Full Range of Motion, Other (Healing surgical incision on the left anterior lateral neck.) Respiratory/Chest: No Respiratory Distress, Lungs Clear, Normal Breath Sounds, No Accessory Muscle Use, Chest Non-Tender Cardiovascular: Normal Peripheral Pulses, Regular Rate, Rhythm, No Edema, No Murmur Peripheral Pulses: 2+: Radial (L), Radial (R) GI/Abdominal: Normal Bowel Sounds, Soft, Non-Tender, No Mass Back Exam: Normal Inspection, Full Range of Motion Extremities: Normal Inspection, Normal Range of Motion, Non-Tender, No Pedal Edema, Normal Capillary Refill Neurological: Alert, Oriented, CN II-XII Intact, Normal Cognition, No Motor/Sensory Deficits Psychiatric: Normal Affect Skin Exam: Warm, Dry, Intact, Normal Color, No Rash #1 Interpretation EKG Date: 12/27/20 Time: 12:00 Rhythm: Other (Atrial paced) Rate (Beats/Min): 62 [place]: Normal P-Wave: Absent (P waves present at times but paced complexes as well) QRS: RBBB ST-T: Other (Nonspecific changes) QT: Prolonged (QTc) Comparison: Change From Previous EKG (Comparative EKG on 04/08/2019, and now there are atrial paced complexes.) Course - Vital Signs Last Recorded V/S: Last Vital Signs Temp 36.7 C 12/27/20 11:53 Pulse 60 12/27/20 11:53 Resp 20 12/27/20 11:53 BP 129/61 12/27/20 11:53 Pulse Ox 98 12/27/20 11:53 - Orders/Labs/Meds Orders: Active Orders 24 hr Category Date Time Status Chest 2V [CR] Stat Exams 12/27/20 13:00 Taken EKG 12 Lead [EK] Routine Ther 12/27/20 12:36 Ordered Labs: Laboratory Tests 12/27/20 12/27/20 12/27/20 Range/Units 12:36 13:11 13:11 WBC 6.6 (3.0-10.3) x10-3/uL RBC 4.23 (3.60-5.20) x10(6)uL Hgb 12.8 (11.4-15.5) g/dL Hct 38.9 (34.2-48.2) % MCV 91.8 (76.7-100.5) fL MCH 30.2 (23.9-33.9) pg MCHC 32.9 (31.9-34.8) g/dL RDW 13.2 (12.3-16.5) % Plt Count 265 (151-488) x10(3)uL MPV 6.8 L (7.1-12.4) fL Neut % (Auto) 55.4 (30.8-76.2) % Lymph % (Auto) 24.8 (18.4-52.1) % [place] % (Auto) 7.8 (4.4-15.7) % Eos % (Auto) 10.9 H (0.6-8.1) % Baso % (Auto) 1.1 (0.2-1.5) % Neut # (Auto) 3.7 (1.5-6.3) x10-3/uL Lymph # (Auto) 1.6 (1.0-4.4) x10-3/uL [place] # (Auto) 0.5 (0.3-1.0) x10-3/uL Eos # (Auto) 0.7 (0.0-0.8) x10-3/uL Baso # (Auto) 0.1 (0.0-0.1) x10-3/uL Sodium 142 (135-145) mmol/L Potassium 4.3 (3.5-5.3) mmol/L Chloride 105 (100-110) mmol/L Carbon Dioxide 28 (21-32) mmol/L BUN 16 (7-18) mg/dL Creatinine 0.6 (0.55-1.02) mg/dL Est Cr Clr Drug Dosing 61.86 mL/min Estimated GFR (MDRD) > 60 (>60) BUN/Creatinine Ratio 26.7 H (9-20) Glucose 105 (80-116) mg/dL Calcium 8.8 (8.6-10.2) mg/dL Magnesium 2.0 (1.8-2.5) mg/dL Total Bilirubin 0.6 (0.1-1.3) mg/dL AST 20 D (5-25) IU/L ALT 26 D (12-36) U/L Alkaline Phosphatase 61 (56-112) IU/L Troponin I (4.0-60.3) pg/mL NT-Pro-B Natriuret Pep (<=450) pg/mL Total Protein 6.9 (6.0-8.0) g/dL Albumin 3.4 (3.2-4.6) g/dL Globulin 3.5 g/dL Albumin/Globulin Ratio 1.0 SARS-CoV-2 RNA (YEN) Negative (NEGATIVE) 12/27/20 12/27/20 Range/Units 13:11 13:11 WBC (3.0-10.3) x10-3/uL RBC (3.60-5.20) x10(6)uL Hgb (11.4-15.5) g/dL Hct (34.2-48.2) % MCV (76.7-100.5) fL MCH (23.9-33.9) pg MCHC (31.9-34.8) g/dL RDW (12.3-16.5) % Plt Count (151-488) x10(3)uL MPV (7.1-12.4) fL Neut % (Auto) (30.8-76.2) % Lymph % (Auto) (18.4-52.1) % [place] % (Auto) (4.4-15.7) % Eos % (Auto) (0.6-8.1) % Baso % (Auto) (0.2-1.5) % Neut # (Auto) (1.5-6.3) x10-3/uL Lymph # (Auto) (1.0-4.4) x10-3/uL [place] # (Auto) (0.3-1.0) x10-3/uL Eos # (Auto) (0.0-0.8) x10-3/uL Baso # (Auto) (0.0-0.1) x10-3/uL Sodium (135-145) mmol/L Potassium (3.5-5.3) mmol/L Chloride (100-110) mmol/L Carbon Dioxide (21-32) mmol/L BUN (7-18) mg/dL Creatinine (0.55-1.02) mg/dL Est Cr Clr Drug Dosing mL/min Estimated GFR (MDRD) (>60) BUN/Creatinine Ratio (9-20) Glucose (80-116) mg/dL Calcium (8.6-10.2) mg/dL Magnesium (1.8-2.5) mg/dL Total Bilirubin (0.1-1.3) mg/dL AST (5-25) IU/L ALT (12-36) U/L Alkaline Phosphatase (56-112) IU/L Troponin I 5.7 (4.0-60.3) pg/mL NT-Pro-B Natriuret Pep 972 H (<=450) pg/mL Total Protein (6.0-8.0) g/dL Albumin (3.2-4.6) g/dL Globulin g/dL Albumin/Globulin Ratio SARS-CoV-2 RNA (YEN) (NEGATIVE) - Radiology Interpretation Free Text/Narrative:: Chest x-ray PA and lateral reveals no acute disease per my read. - Re-Assessments/Exams Free Text/Narrative Re-Assessment/Exam: 12/27/20 13:30: One blood cell count is 6.6. Hemoglobin is 12.8. Platelet count is normal. Sodium is 142. Potassium is 4.3. Bicarbonate is 28. BUN is 16 and creatinine 0.6. Glucose is 105. LFTs are normal. Magnesium is normal. Troponin was normal. ProBNP was slightly elevated at 972. An EKG showed a partially atrial paced rhythm change from previous EKG other than this. Chest x-ray is pending. It was waiting for the Covid test to be performed. The Covid test is negative. The patient remains hemodynamically and respiratory stable. She is in no distress. 12/27/20 14:23: The chest x-ray shows no acute disease. All the patient's labs are reassuring except for mildly elevated proBNP. Her EKG was really unchanged from previous. Covid test was negative. This could represent a bronchitis. I don't see any evidence of congestive heart failure or any other serious problem. This all this with the patient and with her . I will place the patient on a Z-Jeffery. She should continue to use Robitussin for her cough. And she needs to follow-up with her primary provider next week. Precautions and reasons for return to the emergency department discussed with the patient while she was in the emergency department and were detailed in the patient's discharge instructions. Departure - Departure Time of Disposition: 14:25 Disposition: Home, Self-Care 01 Condition: Good Clinical Impression: Bronchitis, Cough - Discharge Information Prescriptions: Azithromycin [Zithromax] 250 mg PO ASDIRECTED 5 Days #6 tab Instructions: Cough, Adult, [id number], Acute Bronchitis, Adult, [id number] Referrals: Pita Sanchez MANAGER CASE [Primary Care Provider] - Forms: ED Department Discharge Additional Instructions: All of your blood tests were reassuring. One test that measures heart function was a little off but there was no evidence of a heart attack or any other serious problem. You will need to follow-up with your primary provider next week as you may need further testing. Your chest x-ray showed no evidence of pneumonia or heart failure. You appear to have bronchitis. I'm placing on Zithromax to treat this. This prescription was sent to [facility]. You should continue to take the Robitussin as needed for her cough. You should drink fluids judiciously. Back to the emergency department for chest pain, shortness of breath, severe weakness or any other concerning signs or symptoms. Sepsis Event Note (ED) - Evaluation Sepsis Screening Result: No Definite Risk - Focused Exam Vital Signs: Vital Signs Temp Pulse Resp BP Pulse Ox 12/27/20 11:53 36.7 C 60 20 129/61 98 - My Orders Last 24 Hours: My Active Orders 12/27/20 12:36 EKG 12 Lead [EK] Routine 12/27/20 13:00 Chest 2V [CR] Stat - Assessment/Plan Last 24 Hours: My Active Orders 12/27/20 12:36 EKG 12 Lead [EK] Routine 12/27/20 13:00 Chest 2V [CR] Stat
--- NOTE | 2020-12-27 15:32 | CR ---
INDICATION: Cough. CHEST TWO VIEWS [id number]: PA and lateral views of the chest 12/27/20 were compared with 08/26/17 and revealed clearing of previous minimal parenchymal changes and pleural changes at the left costophrenic angle. At this time, a definite active infiltrate or effusion, was not identified. The heart appears to be near the upper limits of normal in size with mild LVE suggested. Bipolar pacemaker leads are now seen in place from the left subclavian. The aorta is tortuous with calcification in the arch and descending portion. A moderate dextroconvex scoliosis of the thoracic spine is noted. A definite active infiltrate or effusion was not seen. Slightly flattened diaphragm leads with prominent AP diameter and hyperaeration suggests COPD. IMPRESSION: 1. 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 2. Probable COPD. 3. Scoliosis. 4. No definite acute process. MTDD
== END 2020-12-27 15:05 | disposition home or self-care (01) ==
LOC: FB.ED 11:50
DX: J40 Bronchitis, not specified as acute or chronic (principal); I48.91 Unspecified atrial fibrillation; E78.00 Pure hypercholesterolemia, unspecified; I10 Essential (primary) hypertension; K21.9 Gastro-esophageal reflux disease without esophagitis; Z88.1 Allergy status to other antibiotic agents; Z88.5 Allergy status to narcotic agent; Z79.899 Other long term (current) drug therapy; Z79.01 Long term (current) use of anticoagulants; Z79.82 Long term (current) use of aspirin; Z20.822 Contact with and (suspected) exposure to COVID-19
CPT/HCPCS: 36415; 71046; 80053; 83735; 83880; 84484; 85025; 93005; 99284-25; U0002

== ENCOUNTER 2023-01-23 22:33 | Emergency (ER) | payer MEDICARE, BC ==
[2023-01-23] MEDS ORDERED: Sodium Chloride 0.9% 10 ML Syringe FLUSH PRN (23:19)
[2023-01-23] MEDS ORDERED: Sodium Chloride 0.9% 500 ML IV ONE (23:19)
[2023-01-23] MEDS: Sodium Chloride 0.9% 1,000 ML IV SCH ×2 (23:30→23:47)
[2023-01-23 23:40] LABS: BASOPHILS PERCENT AUTO 0.4 % (0.2-1.5); EOSINOPHILS ABSOLUTE AUTO 0.1 x10-3/uL (0.0-0.8); EOSINOPHILS PERCENT AUTO 1.2 % (0.6-8.1); HEMATOCRIT 42.4 % (34.2-48.2); HEMOGLOBIN 14.4 g/dL (11.4-15.5); LYMPHOCYTES ABSOLUTE AUTO 1.1 x10-3/uL (1.0-4.4); LYMPHOCYTES PERCENT AUTO 16.6 % (18.4-52.1); MEAN CORPUSCULAR HEMOGLOBIN 31.7 pg (23.9-33.9); MEAN CORPUSCULAR VOLUME 93.1 fL (76.7-100.5); MONOCYTES ABSOLUTE AUTO 0.6 x10-3/uL (0.3-1.0); MONOCYTES PERCENT AUTO 9.2 % (4.4-15.7); NEUTROPHILS ABSOLUTE AUTO 4.8 x10-3/uL (1.5-6.3); NEUTROPHILS PERCENT AUTO 72.6 % (30.8-76.2); PLATELET COUNT,PLT 250 x10(3)uL (151-488); RED BLOOD CELL COUNT 4.55 x10(6)uL (3.60-5.20); WHITE BLOOD CELL COUNT,WBC 6.6 x10-3/uL (3.0-10.3)
[2023-01-23 23:48] LABS: ALANINE AMINOTRANSFERASE,ALT 43 U/L (12-36); ALBUMIN 3.7 g/dL (3.2-4.6); ALKALINE PHOSPHATASE 67 IU/L (56-112); ASPARTATE AMNIOTRANSFERASE,AST 32 IU/L (5-25); BILIRUBIN TOTAL 0.5 mg/dL (0.1-1.3); BLOOD UREA NITROGEN,BUN 14 mg/dL (7-18); BUN/CREATININE RATIO 12.7 (9-20); CALCIUM 8.9 mg/dL (8.6-10.2); CARBON DIOXIDE,CO2 29 mmol/L (21-32); CHLORIDE,CL 96 mmol/L (100-110); CREATININE 1.1 mg/dL (0.55-1.02); ESTIMATED GFR 50 mL/min (>60); GLUCOSE RANDOM 111 mg/dL (80-116); MAGNESIUM 1.5 mg/dL (1.8-2.5); PROTEIN TOTAL,TP 7.3 g/dL (6.0-8.0); SODIUM,NA 136 mmol/L (135-145)
[2023-01-23 23:52] LABS: POTASSIUM,K 2.6 mmol/L (3.5-5.3)
[2023-01-23] MEDS ORDERED: Magnesium Oxide 400 MG Tab PO ONE (23:53)
[2023-01-23] MEDS ORDERED: Potassium Chloride 20 MEQ Tab.ER PO ONE (23:53)
[2023-01-23] MEDS ORDERED: Potassium Chloride 10 MEQ in Premix Bag 1 BAG IV ONE (23:53)
[2023-01-24 00:28] LABS: APPEARANCE,URINE SLIGHTLY CLOUDY (CLEAR); COLOR,URINE YELLOW (YELLOW); PROTEIN,URINE TRACE mg/dL (NEGATIVE)
[2023-01-24 00:29] LABS: BILIRUBIN,URINE NEGATIVE (NEGATIVE); GLUCOSE,URINE NORMAL (NORMAL); KETONES,URINE NEGATIVE (NEGATIVE); LEUKOCYTE ESTERASE,URINE MODERATE (NEGATIVE); NITRITE,URINE NEGATIVE (NEGATIVE); OCCULT BLOOD,URINE MODERATE (NEGATIVE); SQUAMOUS EPITHELIAL CELLS,UR FEW (NS,R,O); UROBILINOGEN,URINE NORMAL (NEGATIVE)
[2023-01-24 00:30] LABS: BACTERIA,URINE MODERATE (NS); FINE GRANULAR CASTS,URINE OCCASIONAL (NS)
[2023-01-24] MEDS ORDERED: Sulfamethoxazole/Trimethoprim 800-160 MG Tab PO ONE (03:54)
== END 2023-01-24 04:30 | disposition home or self-care (01) ==
LOC: FB.ED 22:33
DX: N39.0 Urinary tract infection, site not specified (principal); E86.0 Dehydration; E87.6 Hypokalemia; E83.42 Hypomagnesemia; I48.91 Unspecified atrial fibrillation; I10 Essential (primary) hypertension; E78.00 Pure hypercholesterolemia, unspecified; K21.9 Gastro-esophageal reflux disease without esophagitis; M19.90 Unspecified osteoarthritis, unspecified site; Z79.01 Long term (current) use of anticoagulants; Z79.82 Long term (current) use of aspirin; Z79.899 Other long term (current) drug therapy; Z88.1 Allergy status to other antibiotic agents; Z88.5 Allergy status to narcotic agent
CPT/HCPCS: 36415; 51702; 74176; 80053; 80307; 81001; 83735; 84132; 85025; 87086; 87088; 87186; 96361; 96365; 99284; 99284-25; A9270-GY; J3480; J7030; J7040

== ENCOUNTER 2023-09-02 18:47 | Emergency (ER) | payer MEDICARE, BC ==
[2023-09-02] MEDS ORDERED: Sodium Chloride 0.9% 10 ML Syringe FLUSH PRN (19:21)
[2023-09-02] MEDS: cloNIDine 0.1 MG Tab ONE (19:37)
[2023-09-02] MEDS: cloNIDine 0.1 MG Tab PO ONE (19:38)
[2023-09-02 20:38] LABS: BASOPHILS ABSOLUTE AUTO 0.1 x10-3/uL (0.0-0.1); BASOPHILS PERCENT AUTO 0.8 % (0.2-1.5); EOSINOPHILS ABSOLUTE AUTO 0.2 x10-3/uL (0.0-0.8); EOSINOPHILS PERCENT AUTO 3.5 % (0.6-8.1); HEMATOCRIT 40.6 % (34.2-48.2); HEMOGLOBIN 13.3 g/dL (11.4-15.5); LYMPHOCYTES ABSOLUTE AUTO 1.6 x10-3/uL (1.0-4.4); LYMPHOCYTES PERCENT AUTO 26.2 % (18.4-52.1); MEAN CORPUSCULAR HEMOGLOBIN 31.7 pg (23.9-33.9); MEAN CORPUSCULAR HGB CONC 32.8 g/dL (31.9-34.8); MEAN CORPUSCULAR VOLUME 96.7 fL (76.7-100.5); MEAN PLATELET VOLUME 7.7 fL (7.1-12.4); MONOCYTES ABSOLUTE AUTO 0.6 x10-3/uL (0.3-1.0); MONOCYTES PERCENT AUTO 10.1 % (4.4-15.7); NEUTROPHILS ABSOLUTE AUTO 3.7 x10-3/uL (1.5-6.3); NEUTROPHILS PERCENT AUTO 59.4 % (30.8-76.2); PLATELET COUNT,PLT 222 x10(3)uL (151-488); RED CELL DISTRIBUTION WIDTH 14.3 % (12.3-16.5); WHITE BLOOD CELL COUNT,WBC 6.3 x10-3/uL (3.0-10.3)
[2023-09-02 20:45] LABS: ALANINE AMINOTRANSFERASE,ALT 40 U/L (12-36); ALBUMIN 3.4 g/dL (3.2-4.6); ALKALINE PHOSPHATASE 79 IU/L (56-112); ASPARTATE AMNIOTRANSFERASE,AST 38 IU/L (5-25); BILIRUBIN TOTAL 0.4 mg/dL (0.1-1.3); BLOOD UREA NITROGEN,BUN 11 mg/dL (7-18); BUN/CREATININE RATIO 18.3 (9-20); CALCIUM 9.4 mg/dL (8.6-10.2); CARBON DIOXIDE,CO2 29 mmol/L (21-32); CREATININE 0.6 mg/dL (0.55-1.02); EST CRCL DRUG DOSING (CG) 63.93 mL/min; ESTIMATED GFR 89 mL/min (>60); GLUCOSE RANDOM 114 mg/dL (80-116); PROTEIN TOTAL,TP 6.9 g/dL (6.0-8.0)
[2023-09-02 20:57] LABS: CHLORIDE,CL 103 mmol/L (100-110); POTASSIUM,K 4.2 mmol/L (3.5-5.3); SODIUM,NA 141 mmol/L (135-145)
== END 2023-09-02 21:25 | disposition home or self-care (01) ==
LOC: FB.ED 18:47
DX: I10 Essential (primary) hypertension (principal); E78.00 Pure hypercholesterolemia, unspecified; I48.91 Unspecified atrial fibrillation; K21.9 Gastro-esophageal reflux disease without esophagitis; Z90.49 Acquired absence of other specified parts of digestive tract; Z90.710 Acquired absence of both cervix and uterus; Z79.01 Long term (current) use of anticoagulants; Z79.899 Other long term (current) drug therapy; Z88.5 Allergy status to narcotic agent; Z88.1 Allergy status to other antibiotic agents
CPT/HCPCS: 36415; 71045; 80053; 83735; 83880; 84484; 85025; 93005; 93010; 99283; 99285; A9270-GY

== ENCOUNTER 2024-06-19 04:07 | Emergency (ER) | payer MEDICARE, BC ==
[2024-06-19] MEDS ORDERED: predniSONE 10 MG Tab PO ONE (04:08)
[2024-06-19] MEDS: Albuterol/Ipratropium 3.0-0.5 MG/3 ML Neb Soln NEB ONE (04:40)
[2024-06-19 05:14] LABS: INFLUENZA A NAA NEGATIVE (NEGATIVE); INFLUENZA B NAA NEGATIVE (NEGATIVE); RESPIRATORY SYNCYTIAL VIR NAA NEGATIVE (NEGATIVE)
[2024-06-19 05:15] LABS: CORONAVIRUS COVID-19 NAA NEGATIVE (NEGATIVE)
== END 2024-06-19 05:45 | disposition home or self-care (01) ==
LOC: FB.ED 04:07
DX: R05.9 Cough, unspecified (principal); I10 Essential (primary) hypertension; I48.91 Unspecified atrial fibrillation; E78.00 Pure hypercholesterolemia, unspecified; J44.9 Chronic obstructive pulmonary disease, unspecified; K21.9 Gastro-esophageal reflux disease without esophagitis; M19.90 Unspecified osteoarthritis, unspecified site; Z95.0 Presence of cardiac pacemaker; Z88.8 Allergy status to other drugs, medicaments and biological substances; Z79.899 Other long term (current) drug therapy; Z79.02 Long term (current) use of antithrombotics/antiplatelets; Z79.01 Long term (current) use of anticoagulants; Z90.49 Acquired absence of other specified parts of digestive tract; Z90.710 Acquired absence of both cervix and uterus
CPT/HCPCS: 0241U; 94640; 99283; 99285; A9270-GY; J7512